=== PATIENT | female | born 1990 | race Caucasian/White ===

== ENCOUNTER 2020-06-25 16:53 | Emergency (ER) | payer SELFPAY ==
[~2020-06-25] VITALS: Ht 157.5 cm; Wt 90.9 kg
[2020-06-25 18:43] VITALS: BP 128/67; PULSE 80; TEMP 98
== END 2020-06-25 18:45 | disposition home or self-care (01) ==
LOC: COL.ER 16:53
DX: M25.531 Pain in right wrist (principal)

== ENCOUNTER 2022-05-29 17:14 | Emergency (ER) | payer SELFPAY ==
[~2022-05-29] VITALS: Ht 157.5 cm; Wt 78.6 kg
[2022-05-29 17:20] VITALS: TEMP 98.6
[2022-05-29 17:46] LABS: COLLECTION METHOD CLEAN CATCH
[2022-05-29 17:50] LABS: URINE COLOR OTHER (YELLOW)
[2022-05-29 17:54] LABS: URINE APPEARANCE Cloudy (CLEAR/HAZY); URINE GLUCOSE Negative (NEGATIVE); URINE PROTEIN(semi-quant) 1+ (NEGATIVE)
[2022-05-29 17:55] LABS: URINE BLOOD TRACE-INTACT (NEGATIVE); URINE KETONE 4+ (NEGATIVE); URINE NITRATE Positive (NEGATIVE)
[2022-05-29 18:00] LABS: MUCOUS Present (NOT PRESENT); URINE BACTERIA Rare /hpf (NONE SEEN)
[2022-05-29 18:16] LABS: BASO % 0.3 % (0.0-2.0); EOS % 0.2 % (0.0-4.0); GRAN % 75.1 % (42.2-75.2); HEMATOCRIT 37.4 % (37.0-47.0); HEMOGLOBIN 12.1 g/dl (12.5-16.0); LYMPH # 2.4 K/mm3 (1.2-3.4); LYMPH % 15.2 % (20.0-51.0); MEAN CELL VOLUME 89 fl (80.0-100.0); MEAN CORPUSCULAR HEMOGLOBIN 29 pg (27-31); MEAN CORPUSCULAR HGB CONC 32 g/dl (33.0-37.0); MEAN PLATELET VOLUME 8.5 fl (7.4-10.4); MONO # 1.4 K/mm3 (0.1-0.6); MONO % 8.8 % (1.7-9.3); PLATELET COUNT 309 K/mm3 (130-400); RED BLOOD COUNT 4.22 M/mm3 (4.10-5.30)
[2022-05-29 18:35] LABS: ALBUMIN 3.7 gm/dL (3.5-5.0); BILIRUBIN,TOTAL 1.9 mg/dL (0.2-1.2); CALCIUM 9.2 mg/dL (8.4-10.2); CREATININE, serum 0.75 mg/dL (0.57-1.11); POTASSIUM 3.4 mmol/L (3.5-4.5); TOTAL PROTEIN 7.2 gm/dL (6.2-8.1)
[2022-05-29] MEDS ORDERED: CEFTIN500 MG PO (18:58)
[2022-05-29 19:08] VITALS: BP 130/77; PULSE 98
[2022-05-30] MEDS ORDERED: DOXYCYCLINE 10100 MG PO (12:36)
[2022-05-30] MEDS ORDERED: ZOFRAN ODT4 MG PO (12:36)
== END 2022-05-29 19:08 | disposition home or self-care (01) ==
LOC: COL.ER 17:14
PROVIDERS: Physician Assistant
DX: N39.0 Urinary tract infection, site not specified (principal); M54.9 Dorsalgia, unspecified; G89.29 Other chronic pain; F17.210 Nicotine dependence, cigarettes, uncomplicated; Z28.310 Unvaccinated for COVID-19; Z79.891 Long term (current) use of opiate analgesic
CPT/HCPCS: J0696; J1885; J7030

== ENCOUNTER 2022-05-30 10:09 | Emergency (ER) | payer SELFPAY ==
[~2022-05-30] VITALS: Ht 157.5 cm; Wt 78.6 kg
[~2022-05-30 10:09] MED LIST: CEFTIN500 MG PO
[2022-05-30 10:17] VITALS: TEMP 98.2
[2022-05-30 11:35] VITALS: BP 130/86
[2022-05-30 11:36] LABS: ALBUMIN 3.3 gm/dL (3.5-5.0); BILIRUBIN,TOTAL 0.7 mg/dL (0.2-1.2); C-REACTIVE PROTEIN 17.45 mg/dL (0.00-0.50); CALCIUM 8.9 mg/dL (8.4-10.2); CREATININE, serum 0.62 mg/dL (0.57-1.11); POTASSIUM 3.4 mmol/L (3.5-4.5); TOTAL PROTEIN 6.6 gm/dL (6.2-8.1)
[2022-05-30 11:39] LABS: BASO % 0.2 % (0.0-2.0); EOS # 0.1 K/mm3 (0.0-0.7); GRAN # 7.2 K/mm3 (1.4-6.5); GRAN % 70.6 % (42.2-75.2); HEMOGLOBIN 10.9 g/dl (12.5-16.0); LYMPH % 19.6 % (20.0-51.0); MEAN CELL VOLUME 87 fl (80.0-100.0); MEAN CORPUSCULAR HEMOGLOBIN 28 pg (27-31); MEAN CORPUSCULAR HGB CONC 32 g/dl (33.0-37.0); MEAN PLATELET VOLUME 8.9 fl (7.4-10.4); MONO # 0.9 K/mm3 (0.1-0.6); MONO % 8.3 % (1.7-9.3); PLATELET COUNT 301 K/mm3 (130-400); RED BLOOD COUNT 3.92 M/mm3 (4.10-5.30); REDCELL DISTRIBUTION WIDTH-CV 14.9 % (11.5-14.5)
[2022-05-30] MEDS ORDERED: ZOFRAN ODT4 MG PO (12:36)
[2022-05-30] MEDS ORDERED: DOXYCYCLINE 10100 MG PO (12:36)
[2022-05-30 13:19] VITALS: PULSE 100
== END 2022-05-30 13:19 | disposition home or self-care (01) ==
LOC: COL.ER 10:09
PROVIDERS: Nurse Practitioner
DX: A56.11 Chlamydial female pelvic inflammatory disease (principal); A54.24 Gonococcal female pelvic inflammatory disease; N39.0 Urinary tract infection, site not specified; A59.09 Other urogenital trichomoniasis; F17.210 Nicotine dependence, cigarettes, uncomplicated
CPT/HCPCS: J1885; J2405; J7030